=== PATIENT | male | born 1955 | race Caucasian/White ===

== ENCOUNTER 2016-06-16 09:09 | Emergency (ER) | payer MEDICARE ==
[~2016-06-16] VITALS: Ht 170.2 cm; Wt 70.0 kg
[~2016-06-16 09:09] MED LIST: IBUP-1542 PO
[2016-06-16 09:14] VITALS: Ht 170.2 cm; Wt 70.0 kg
[2016-06-16] MEDS ORDERED: SOD CHLORIDE 0.9% 500 ML IV STA (09:33)
[2016-06-16 10:11] LABS: BASOPHILS % 0.4 % (0.0-2.0); EOSINOPHILS # 0.1 10^3/ul (0.0-0.5); EOSINOPHILS % 1.8 % (0.0-7.0); HEMATOCRIT 41.4 % (42.0-52.0); HEMOGLOBIN 14.3 g/dl (14.0-18.0); LYMPHOCYTES # 1.2 10^3/ul (0.8-2.9); LYMPHOCYTES % 22.3 % (15.0-51.0); MEAN CORPUSCULAR HEMOGLOBIN 33.6 pg (29.0-33.0); MEAN CORPUSCULAR HGB CONC 34.5 g/dl (32.0-37.0); MEAN CORPUSCULAR VOLUME 97.2 fl (82.0-101.0); MEAN PLATELET VOLUME 7.7 fl (7.4-10.4); MONOCYTE # 0.4 10^3/ul (0.3-0.9); MONOCYTES % 6.7 % (0.0-11.0); NEUTROPHIL # 3.8 10^3/ul (1.6-7.5); NEUTROPHILS % 68.8 % (39.0-77.0); PLATELET COUNT 214 10^3/UL (140-440); RED BLOOD COUNT 4.26 10^6/ul (4.70-6.10); RED CELL DISTRIBUTION WIDTH 13.7 % (11.5-14.5); UNCORRECTED WBC 5.5 10^3/ul (4.8-10.8); WHITE BLOOD COUNT 5.5 10^3/ul (4.8-10.8)
[2016-06-16 10:12] LABS: CONDITION 1
[2016-06-16 10:18] LABS: ALBUMIN 3.7 g/dl (3.3-4.9); POTASSIUM 4.3 mmol/L (3.5-5.1)
[2016-06-16 10:20] LABS: CREATININE 0.74 mg/dl (0.61-1.24)
[2016-06-16 10:21] LABS: ALBUMIN/GLOBULIN RATIO 1.32; BILIRUBIN,INDIRECT 0.6 mg/dl (0-1.1); BILIRUBIN,TOTAL 0.6 mg/dl (0.2-1.3); CALCIUM 8.7 mg/dl (8.4-10.2); TOTAL PROTEIN 6.5 g/dl (6.1-8.1)
[2016-06-16] MEDS ORDERED: METR500T PO (10:32)
--- NOTE | 2016-06-16 10:36 | ERD ---
ER Documentation Chief Complaint Date/Time DATE: 06/16/16 TIME: 927 Chief Complaint ABDOMINAL PAIN X 3 DAYS WITH DIARRHEA HPI 60-year-old male presents to the emergency department complaining of diarrhea. Patient states that he has been taking Cipro for the last 2 weeks for a urinary issue associated with urinary retention. This was prescribed by his doctor. Over the last 3 days, he has had a watery, nonbloody diarrhea associated with a nonspecific visceral lower abdominal pain that has now localized. He describes the pain as a 6/10 at this time. He reports no fevers chills or vomiting. Patient reports no further urinary symptoms. ROS All systems reviewed and are negative except as per history of present illness. Medications Home Meds Active Scripts Metronidazole* (Flagyl*) 500 Mg Tablet, 500 MG PO TID for 7 Days, TAB Prov:MATT GROVE 06/16/16 Ibuprofen* (Motrin*) 600 Mg Tab, 600 MG PO Q8 for 10 Days, #30 TAB 0 Refills Prov:NURIS WALLER PA-C 03/09/16 Allergies Allergies: Coded Allergies: No Known Allergy (Unverified , 06/16/16) PMhx/Soc History of Surgery: Yes (left hand sx) Anesthesia Reaction: No Hx Neurological Disorder: No Hx Respiratory Disorders: No Hx Cardiac Disorders: Yes (htn) Hx Psychiatric Problems: No Hx Miscellaneous Medical Probl: Yes (bph) Hx Alcohol Use: Yes (MAY BE TWICE A MONTH) Hx Substance Use: No Hx Tobacco Use: No Smoking Status: Never smoker FmHx Noncontributory for chief complaint Physical Exam Vitals Vital Signs Date Time Temp Pulse Resp B/P Pulse Ox O2 Delivery O2 Flow Rate FiO2 06/16/16 09:14 98.1 76 18 122/78 97 Physical Exam GENERAL: The patient is well developed and appropriate for usual state of health in no apparent distress HEENT: Pupils equal, round, and reactive to light. EOMI. There is no scleral icterus. NECK: C-spine is soft and supple, there is no meningismus. There is no cervical lymphadenopathy. LUNGS: Clear to auscultation bilaterally. There are no rales, wheezes or rhonchi. HEART: Regular rate and rhythm, no murmurs, clicks, rubs or gallops. ABDOMEN: Soft, non-tender, non-distended. There are bowel sounds in all four quadrants. No rebound or guarding. EXTREMITIES: There is no peripheral cyanosis or edema. No focal swelling or erythema. NEURO: The patient moves all four extremities with 5/5 strength. Cranial nerves II - XII are intact. Normal gait. Alert and oriented SKIN: There is no apparent rash or petechiae. HEME/LYMPHATIC: There is no evidence of excessive bruising or lymphedema. PSYCHIATRIC: The patient does not appear anxious or depressed. Result Diagram: 06/16/16 1000 06/16/16 1000 Results 24 hrs Laboratory Tests Test 06/16/16 10:00 Alanine Aminotransferase (ALT/SGPT) 28IU/L Albumin 3.7g/dl Albumin/Globulin Ratio 1.32 Alkaline Phosphatase 56IU/L Anion Gap 13 Aspartate Amino Transf (AST/SGOT) 22IU/L Basophils # 0.010^3/ul Basophils % 0.4% Blood Urea Nitrogen 14mg/dl Calcium Level 8.7mg/dl Carbon Dioxide Level 29mmol/L Chloride Level 105mmol/L Creatinine 0.74mg/dl Direct Bilirubin 0.00mg/dl Eosinophils # 0.110^3/ul Eosinophils % 1.8% Globulin 2.80g/dl Glucose Level 99mg/dl Hematocrit 41.4% Hemoglobin 14.3g/dl Indirect Bilirubin 0.6mg/dl Lymphocytes # 1.210^3/ul Lymphocytes % 22.3% Mean Corpuscular Hemoglobin 33.6pg Mean Corpuscular Hemoglobin Concent 34.5g/dl Mean Corpuscular Volume 97.2fl Mean Platelet Volume 7.7fl Monocytes # 0.410^3/ul Monocytes % 6.7% Neutrophils # 3.810^3/ul Neutrophils % 68.8% Nucleated Red Blood Cells # 0.010^3/ul Nucleated Red Blood Cells % 0.0/100WBC Platelet Count 50032^3/UL Potassium Level 4.3mmol/L Red Blood Count 4.2610^6/ul Red Cell Distribution Width 13.7% Sodium Level 143mmol/L Total Bilirubin 0.6mg/dl Total Protein 6.5g/dl White Blood Count 5.510^3/ul Current Medications Medications (Trade) Dose Ordered Sig/Rafael Route PRN Reason Start Time Stop Time Status Last Admin Dose Admin Sodium Chloride (NS) 500 ml @ 500 mls/hr Q1H STAT IV 06/16/16 09:33 06/16/16 10:32 DC 06/16/16 09:55 Procedures/MDM Patient was taken to a room, seen and evaluated. Comfort measures were initiated. Diagnostic tests were ordered and reviewed. REEVALUATION: Patient remained stable with no abdominal tenderness or evidence of dehydration. MEDICAL DECISION MAKING: This is a 60-year-old male presents with diarrhea. Differential diagnosis entertained was broad and potential high acuity up to including infectious diarrhea, dehydration or in this patient's case, considerations for C. difficile/antibiotic associated diarrhea. At this time, patient's lab tests and clinical examination is benign with no significant abdominal tenderness or evidence of sepsis or dehydration. Patient shows no clinical evidence of blood loss or severe sepsis type infections. Overall, he appears to be clinically well. I have recommended that he speak to his doctor about the possible discontinuation of the Cipro. I have sent stool for C. difficile but this is pending at this time. Patient will be treated as an outpatient with empiric treatment for C. difficile colitis but appears to be appropriate for outpatient care at this time. Departure Diagnosis: Primary Impression: Diarrhea Condition: Stable Patient Instructions: Treating Diarrhea Additional Instructions: Please speak to your doctor with a copy of your results within the next 1-2 days. Your doctor may wish to discontinue the antibiotics that you are on. Return for any worsening problems or concerns. MATT GRVOE Jun 16, 2016 10:36
[2016-06-16 11:07] VITALS: BP 102/78; PULSE 98; RESP 18; TEMP 98
== END 2016-06-16 11:08 | disposition home or self-care (01) ==
LOC: E/R 09:09
DX: R19.7 Diarrhea, unspecified (principal); I10 Essential (primary) hypertension
CPT/HCPCS: 36415; 80053; 85025; 87075; 99284; J7040

== ENCOUNTER 2017-01-08 08:50 | Emergency (ER) | payer MEDICARE ==
[~2017-01-08] VITALS: Ht 172.7 cm; Wt 76.5 kg
[~2017-01-08 08:50] MED LIST changes: +METR500T PO
[2017-01-08 08:54] VITALS: Ht 172.7 cm; Wt 76.5 kg
[2017-01-08] MEDS ORDERED: DIPHTH/TET/ACEL PERTUSS (ADULT) 0.5 ML VIAL IM* ONE (10:00)
--- NOTE | 2017-01-08 11:59 | ERD ---
ER Documentation Chief Complaint Date/Time DATE: 01/08/17 TIME: 11:58 Chief Complaint RIGHT 2ND DIGIT RAT BITE 8 DAYS AGO, NO SWELLING HPI 61-year-old male complaining of rat bite to right index finger. Patient sustained bite 8 days ago and is having continued pain. Right hand dominant. Does not recall last tetanus shot. No numbness or tingling. Has not taken medication for pain. ROS All systems reviewed and are negative except as per history of present illness. Medications Home Meds Active Scripts Metronidazole* (Flagyl*) 500 Mg Tablet, 500 MG PO TID for 7 Days, TAB Prov:MATT GROVE 06/16/16 Ibuprofen* (Motrin*) 600 Mg Tab, 600 MG PO Q8 for 10 Days, #30 TAB 0 Refills Prov:NURIS WALLER PA-C 03/09/16 Allergies Allergies: Coded Allergies: No Known Allergy (Unverified , 01/08/17) PMhx/Soc History of Surgery: Yes (left hand sx) Anesthesia Reaction: No Hx Neurological Disorder: No Hx Respiratory Disorders: No Hx Cardiac Disorders: Yes (htn) Hx Psychiatric Problems: No Hx Miscellaneous Medical Probl: Yes (bph) Hx Alcohol Use: Yes (MAY BE TWICE A MONTH) Hx Substance Use: No Hx Tobacco Use: No Smoking Status: Never smoker Physical Exam Vitals Vital Signs Date Time Temp Pulse Resp B/P Pulse Ox O2 Delivery O2 Flow Rate FiO2 01/08/17 08:54 98.0 74 18 122/76 97 Physical Exam GENERAL: The patient is well-appearing, well-nourished, in no acute distress CHEST: Clear to auscultation bilaterally. There are no rales, wheezes or rhonchi. HEART: Regular rate and rhythm. No murmurs, clicks, rubs or gallops. No S3 or S4. EXTREMITIES: Equal pulses bilaterally. There is no peripheral clubbing, cyanosis or edema. No focal swelling or erythema. Full range of motion. Grossly neurovascularly intact. NEUROLOGIC: Alert and oriented. Cranial nerves II through XII intact. Motor strength in all 4 extremities with 5 out of 5 strength. Sensation grossly intact. Normal speech and gait. Babinski negative. DTR 2+ throughout. SKIN: Superficial puncture wound to right index finger. No surrounding erythema. No purulence. Results 24 hrs Current Medications Medications (Trade) Dose Ordered Sig/Rafael Route PRN Reason Start Time Stop Time Status Last Admin Dose Admin Diphtheria/ Tetanus/Acell Pertussis (Adacel) 0.5 ml ONCE ONCE IM* 01/08/17 10:00 01/08/17 10:01 DC 01/08/17 10:00 Procedures/MDM ER Course: Tdap given in ED MDM: 61 yr old male complaining of bite to right index finger. I have low suspicion for flexor tenosynovitis. I have low suspicion for retained foreign body. I have low suspicion for deep inoculated cellulitis. Patient will be given antibiotics as prophylaxis. I do not feel that blood work or imaging was indicated at today's visit. Patient did receive tetanus shot while in the ED. I have low suspicion for tendon or ligament injury, or neurodeficit. Patient's exam is within normal limits. I have low suspicion for osteomyelitis as there is no redness or swelling to the digit. Patient does not have pain out of proportion. Departure Diagnosis: Primary Impression: Bite wound Condition: Stable Patient Instructions: Wound Care Referrals: [facility] YOU HAVE RECEIVED A MEDICAL SCREENING EXAM AND THE RESULTS INDICATE THAT YOU DO NOT HAVE A CONDITION THAT REQUIRES URGENT TREATMENT IN THE EMERGENCY DEPARTMENT. FURTHER EVALUATION AND TREATMENT OF YOUR CONDITION CAN WAIT UNTIL YOU ARE SEEN IN YOUR DOCTORS OFFICE WITHIN THE NEXT 1-2 DAYS. IT IS YOUR RESPONSIBILITY TO MAKE AN APPOINTMENT FOR FOLOW-UP CARE. IF YOU HAVE A PRIMARY DOCTOR --you should call your primary doctor and schedule an appointment IF YOU DO NOT HAVE A PRIMARY DOCTOR YOU CAN CALL OUR PHYSICIAN REFERRAL HOTLINE AT IF YOU CAN NOT AFFORD TO SEE A PHYSICIAN YOU CAN CHOSE FROM THE FOLLOWING [facility] [address] [facility]. [facility] [address] [facility] [email or web address] [address] [facility]. [facility] [address] [facility]. [facility] [address] [facility]. [facility]. [address] Additional Instructions: FOLLOW UP WITH YOUR PRIMARY CARE PHYSICIAN TOMORROW.Return to this facility if you are not improving as expected. ISREAL FREITAS PA-C Jan 08, 2017 11:59
== END 2017-01-08 10:06 | disposition home or self-care (01) ==
LOC: FTE 08:50
DX: S61.250A Open bite of right index finger without damage to nail, initial encounter (principal); I10 Essential (primary) hypertension; W53.11XA Bitten by rat, initial encounter; Y92.9 Unspecified place or not applicable; Z23 Encounter for immunization
CPT/HCPCS: 90471; 90715

== ENCOUNTER 2017-01-24 10:13 | Emergency (ER) | payer MEDICARE, MEDICAID ==
[~2017-01-24] VITALS: Wt 89.0 kg
[2017-01-24 11:13] LABS: URINE BLOOD (Dip) POC 1+ (NEGATIVE)
--- NOTE | 2017-01-24 13:07 | RADRPT ---
PROCEDURE: CT Abdomen and Pelvis without contrast. CLINICAL INDICATION: Frequent urination, burning, pain TECHNIQUE: CT of the abdomen and pelvis was performed on a multi-detector scanner without IV contr ast. Coronal and sagittal images were reformatted from the axial data set. One or more of the foll owing dose reduction techniques were used: automated exposure control, adjustment of the mA and/or k V according to patient size, use of iterative reconstruction technique. CTDI = 12.53 mGy. DLP = 732 .68 mGy-cm. COMPARISON: None. FINDINGS: The lung bases are clear. The heart size is normal, without pericardial effusion. The liver is fat ty infiltrated, without evidence of focal mass. Gallbladder, biliary tree, pancreas, spleen, adrenal glands and kidneys are unremarkable. No urolithiasis or obstructive uropathy is identified. The sto mach is grossly unremarkable. The aorta is of normal caliber. There is no retroperitoneal lymphadenopathy. The severiano hepatis reg ion is clear. No bowel obstruction, free intraperitoneal air or abscess is identified. The appendix is well visual ized and normal. There is no diverticulosis, diverticulitis or colitis. Urinary bladder is grossly u nremarkable. No pelvic mass, free fluid or lymphadenopathy is identified. The surrounding osseous structures are remarkable for degenerative enthesopathy of the spine. No os teolytic or osteoblastic lesion is detected. IMPRESSION: 1. Hepatic steatosis is noted. 2. No urolithiasis or obstructive uropathy is seen. 3. No mass, lymphadenopathy, or focal acute inflammatory process is identified. RPTAT: PP .Ervin Rolon MD, Date Time Electronically viewed and signed by .Ervin Rolon MD, MD on 01/24/2017 13:07 .R/
[2017-01-24] MEDS ORDERED: NEOM28OI TP (13:20)
[2017-01-24] MEDS ORDERED: ACET500C5 PO (13:20)
--- NOTE | 2017-01-24 13:23 | ERD ---
ER Documentation Chief Complaint Date/Time DATE: 01/24/17 TIME: 13:21 Chief Complaint R HAND PAIN HPI This 61-year-old male complains of dysuria and suprapubic pain over the last week. Denies any discharge, fevers or vomiting. Patient just complains of abrasion on his left fourth digit after working today. Denies any significant trauma or mechanism to concern for fracture dislocation. He just wants his wound cleansed so he does not get infection. ROS All systems reviewed and are negative except as per history of present illness. Medications Home Meds Active Scripts Acetaminophen* (Tylophen*) 500 Mg Capsule, 1 CAP PO Q6H Y for PAIN AND OR ELEVATED TEMP, #15 CAP Prov:COLLINS FOX MD 01/24/17 Neomycin Brown/Bacitrac Zn/Poly (Triple Antibiotic Ointment) 28 Gm Oint...g., 28 GM TP TID for 7 Days Prov:COLLINS FOX MD 01/24/17 Metronidazole* (Flagyl*) 500 Mg Tablet, 500 MG PO TID for 7 Days, TAB Prov:MATT GROVE 06/16/16 Ibuprofen* (Motrin*) 600 Mg Tab, 600 MG PO Q8 for 10 Days, #30 TAB 0 Refills Prov:NURIS WALLER PA-C 03/09/16 Allergies Allergies: Coded Allergies: No Known Allergy (Unverified , 01/08/17) PMhx/Soc History of Surgery: Yes (left hand sx) Anesthesia Reaction: No Hx Neurological Disorder: No Hx Respiratory Disorders: No Hx Cardiac Disorders: Yes (htn) Hx Psychiatric Problems: No Hx Miscellaneous Medical Probl: Yes (bph) Hx Alcohol Use: Yes (MAY BE TWICE A MONTH) Hx Substance Use: No Hx Tobacco Use: No Physical Exam Vitals Vital Signs Date Time Temp Pulse Resp B/P Pulse Ox O2 Delivery O2 Flow Rate FiO2 01/24/17 10:16 98.0 78 18 171/81 99 Physical Exam Const: []Alert, [id number] per Head: Atraumatic Eyes: Normal Conjunctiva ENT: Normal External Ears, Nose and Mouth. Neck: Full range of motion..~ No meningismus. Resp: Clear to auscultation bilaterally Cardio: Regular rate and rhythm, no murmurs Abd: Soft, Minimal suprapubic tenderness. No change McBurney's point no Sanchez sign.non distended. Normal bowel sounds Skin: No petechiae or rashes Back: No midline or flank tenderness Ext: No cyanosis, or edema. There is very tiny abrasion on the fourth digit. There is no bony tenderness, deformities, acute changes in restricted range of motion weakness. There are some chronic deformities from previous remote surgery and trauma. Neur: Awake and alert Psych: Normal Mood and Affect Results 24 hrs Laboratory Tests Test 01/24/17 11:20 Bedside Urine pH (LAB) 5.5 Bedside Urine Protein (LAB) Negative Bedside Urine Glucose (UA) Negative Bedside Urine Ketones (LAB) Negative Bedside Urine Blood 1+ Bedside Urine Nitrite (LAB) Negative Bedside Urine Leukocyte Esterase (L Negative Procedures/MDM There is 1+ hemoglobin urine without glucose, leukocytes, nitrates, additional abnormalities. Given the uncertain cause lower abdominal pain hematuria CT abdomen pelvis noncontrast was performed shows no acute abnormalities. Patient' s hand was cleansed and dressed. Patient presents with dysuria and suprapubic pain of uncertain etiology. No current signs or symptoms of diverticulitis, appendicitis, obstruction, sepsis, aortic disease, additional emergent causes of presenting complaints. We treated with Tylenol and wound care and primary care follow-up and return precautions. The patient was stable with no new complaints during the ER course. Clinically, there is no current evidence to suggest meningitis, sepsis, acute abdomen, pneumonia, acute coronary syndrome, pulmonary embolism, or any other emergent condition appearing to require further evaluation or hospitalization. The patient should certainly return for any new or worsening symptoms per the aftercare instructions. They should otherwise follow-up with her primary care doctor for reevaluation this week. Departure Diagnosis: Primary Impression: Dysuria Additional Impression: Injury of hand Encounter type: initial encounter Laterality: left Qualified Code: S69.92XA - Injury of left hand, initial encounter Condition: Stable Patient Instructions: Dysuria, Abrasion COLLINS FOX MD Jan 24, 2017 13:23
== END 2017-01-24 14:19 | disposition home or self-care (01) ==
LOC: FTE 10:13
DX: R30.0 Dysuria (principal); S60.414A Abrasion of right ring finger, initial encounter; I10 Essential (primary) hypertension; X58.XXXA Exposure to other specified factors, initial encounter; Y92.9 Unspecified place or not applicable
CPT/HCPCS: 74176; 81003

== ENCOUNTER 2017-08-24 12:14 | Emergency (ER) | END 2017-08-24 14:52 | disposition home or self-care (01) ==